=== PATIENT | female | born 1965 ===

== ENCOUNTER 2024-10-02 05:46 | Day surgery (SDC) | payer OTHER ==
[2024-09-17 11:58] VITALS: BP 140/79
[~2024-10-02] VITALS: Ht 160 cm; Wt 71.7 kg
[~2024-10-02 05:46] MED LIST: ALLERGY RELIE15.8 ML NASAL; PEPCID AC20 MG PO; PROAIR RESPICL90 MCG IH; PROMETRIUM200 MG PO
[2024-10-02] MEDS ORDERED: CEFAZOLIN SODIUM 1,000 MG VIAL IV ONE (08:45)
== END 2024-10-02 10:45 | disposition home or self-care (01) ==
LOC: CIR.AMB 05:46
PROVIDERS: ATTEND Surgery Surgery of the Hand
DX: M65.842 Other synovitis and tenosynovitis, left hand (principal); M67.844 Other specified disorders of tendon, left hand; Z88.8 Allergy status to other drugs, medicaments and biological substances